=== PATIENT | male | born 1955 | race Caucasian/White ===

== ENCOUNTER 2017-03-22 22:20 | Emergency (ER) | payer OTHER ==
[2017-03-22] MEDS ORDERED: SODIUM CHLORIDE 0.9% 100 ML SOL IV SCH (22:45)
[2017-03-22 22:48] LABS: BASOPHILS % (AUTO) 1 % (0-3); EOSINOPHILS % (AUTO) 1 % (0-9); HEMATOCRIT 38 % (39-53); MEAN CORPUSCULAR HGB CONC 35.7 gm/dl (32.0-36.0); MONOCYTES % (AUTO) 13.1 % (0-12); NEUTROPHILS % (AUTO) 44.6 % (37-80)
[2017-03-22 22:49] LABS: MEAN CORPUSCULAR VOLUME 100 fL (80-100)
[2017-03-22 22:52] LABS: NORMAL RBCS PRESENT
[2017-03-22 22:58] LABS: ALBUMIN 3.7 gm/dl (3.4-5.0); CALCIUM 8.6 mg/dl (8.5-10.1); POTASSIUM 3.6 mMol/L (3.5-5.1)
[2017-03-22] MEDS ORDERED: BACITRACIN 500 U/GM OIN TOP ONE ×2 (23:03→23:53)
[2017-03-22 23:17] VITALS: TEMP 97.6
[2017-03-22] MEDS ORDERED: LIDOCAINE HCL 1% MPF SOL ONE (23:29)
[2017-03-22] MEDS ORDERED: LIDOCAINE HCL 1% MDV SOL SC ONE (23:39)
[2017-03-23] MEDS ORDERED: SODIUM CHLORIDE 0.9% 1000ML 1,000 ML IV ONE (00:40)
[2017-03-23] MEDS ORDERED: SODIUM CHLORIDE 0.9% FLUSH 10 ML SOL IV PRN (00:43)
[2017-03-23 01:04] VITALS: RESP 20
[2017-03-23 05:36] VITALS: O2SAT 93
[2017-03-23] MEDS ORDERED: APAP/HYDROCODONE 325/5 TAB PO ONE (06:01)
[2017-03-23] MEDS ORDERED: APAP/HYDROCODONE 325/5 TAB ONE (06:02)
[2017-03-23 06:04] VITALS: BP 138/83; PULSE 77
== END 2017-03-23 07:15 | disposition home or self-care (01) | DRG 563 ==
LOC: ED 22:20
DX: S43.015A Anterior dislocation of left humerus, initial encounter (principal); F10.920 Alcohol use, unspecified with intoxication, uncomplicated; W10.0XXA Fall (on)(from) escalator, initial encounter; Y92.59 Other trade areas as the place of occurrence of the external cause; S41.112A Laceration without foreign body of left upper arm, initial encounter; S80.212A Abrasion, left knee, initial encounter; S70.12XA Contusion of left thigh, initial encounter; S30.811A Abrasion of abdominal wall, initial encounter; S20.312A Abrasion of left front wall of thorax, initial encounter
CPT/HCPCS: 70450; 72125; 73020; 73030; 80053; 80307; 85025; 99285; G0390; J2001; J2704